=== PATIENT | male | born 1935 | race American Indian/Alaskan Native ===

== ENCOUNTER 2021-12-22 15:41 | Inpatient (IN) | payer OTHER ==
[2021-12-22 15:54] VITALS: BMI 25.6
[2021-12-22 17:46] LABS: VENOUS BASE EXCESS -12.2 mmol/L (-2-2); VENOUS O2 SATURATION 71.8 % (70-80); VENOUS PCO2 36.1 mmHg (38-52); VENOUS PH 7.222 (7.310-7.410)
[2021-12-22 17:58] LABS: BASO % 0.4 % (0-2.0); EOS % 0.3 % (0-4.5); HEMATOCRIT 31.8 % (35.4-49); HEMOGLOBIN 10.5 GM/dL (11.7-16.9); LYMPH % 6.1 % (8-40); MCH 28.7 pg (25.7-33.7); MCHC 32.9 g/dl (32.0-35.9); MEAN CELL VOLUME 87.3 fl (80-96); MEAN PLT VOLUME 8.8 fl (7.5-11.1); MONO % 6.1 % (3.8-10.2); NEUT % 87.1 % (42.8-82.8); PLATELET COUNT 339 10^3/uL (134-434); RBC 3.65 M/mm3 (4.00-5.60); RDW 14.3 % (11.9-15.9); WHITE BLOOD COUNT 16.5 K/mm3 (4.0-10.0)
[2021-12-22 18:04] LABS: LACTIC ACID 3.5 mmol/L (0.4-2.0)
[2021-12-22] MEDS ORDERED: SODIUM CHLORIDE 0.9% 500 ML INFUS.BAG IV ONE (18:09)
[2021-12-22 18:11] LABS: INR 0.96 (0.83-1.09)
[2021-12-22 18:13] LABS: ACTIVATED PTT 28.6 SECONDS (25.2-36.5)
[2021-12-22 18:35] LABS: EPI CELLS 5 /uL (0-25.1); HYALINE CASTS 4 /uL (0-3.1); PH,URINE 5.5 (5.0-8.0); URINE APPEARANCE CLOUDY; URINE BACTERIA >9,000 /uL (0-1359); URINE BILIRUBIN NEGATIVE (NEGATIVE); URINE COLOR YELLOW; URINE GLUCOSE (UA) TRACE (NEGATIVE); URINE KETONE NEGATIVE (NEGATIVE); URINE LEUK ESTERASE 2+ (NEGATIVE); URINE NITRITE NEGATIVE (NEGATIVE); URINE PROTEIN 1+ (NEGATIVE); URINE RBC 11 /uL (0-23.9); URINE UROBILINOGEN 0.2 mg/dL (0.2-1.0); URINE WBC 211 /uL (0-25.8)
[2021-12-22] MEDS ORDERED: CEFTRIAXONE 1,000 MG in DEXTROSE 5%-WATER - 50 ML IVPB ONE (18:38)
[2021-12-22] MEDS ORDERED: CEFTRIAXONE 1 GM/50 ML BAG ONE (19:29)
[2021-12-22 19:42] LABS: CHLORIDE 115 mmol/L (98-107); SODIUM 140 mmol/L (136-145)
[2021-12-22 19:44] LABS: BLOOD UREA NITROGEN 21.4 mg/dL (7-18); CALCIUM 8.9 mg/dL (8.5-10.1)
[2021-12-22 19:45] LABS: ALBUMIN 4.1 g/dl (3.4-5.0); ANION GAP 10 MMOL/L (8-16); CO2 15 mmol/L (21-32); GLUCOSE,RANDOM 191 mg/dL (74-106)
[2021-12-22 19:47] LABS: SGPT/ALT 19 U/L (13-61)
[2021-12-22 19:48] LABS: CREATININE 1.5 mg/dL (0.55-1.3); SGOT/AST 19 U/L (15-37)
[2021-12-22 19:49] LABS: BILIRUBIN,TOTAL 0.3 mg/dL (0.2-1); TOT PROT 7.8 g/dl (6.4-8.2)
[2021-12-22 19:50] LABS: ALK PHOS 107 U/L (45-117)
[2021-12-22] MEDS: INSULIN SLIDING SCALE (NOVOLOG) 1 VIAL SQ SCH (23:59)
[2021-12-23] MEDS: INSULIN SLIDING SCALE (NOVOLOG) 1 VIAL SQ SCH ×4 (06:35→21:50)
[2021-12-23 08:33] LABS: BASO % 0.4 % (0-2.0); EOS % 2.2 % (0-4.5); HEMATOCRIT 31.9 % (35.4-49); HEMOGLOBIN 10.5 GM/dL (11.7-16.9); LYMPH % 11.7 % (8-40); MCH 28.8 pg (25.7-33.7); MCHC 32.9 g/dl (32.0-35.9); MEAN CELL VOLUME 87.3 fl (80-96); MEAN PLT VOLUME 8.8 fl (7.5-11.1); MONO % 8.6 % (3.8-10.2); NEUT % 77.1 % (42.8-82.8); PLATELET COUNT 346 10^3/uL (134-434); RBC 3.65 M/mm3 (4.00-5.60); RDW 14.1 % (11.9-15.9)
[2021-12-23 08:42] LABS: CALCIUM 8.6 mg/dL (8.5-10.1)
[2021-12-23 08:43] LABS: ALBUMIN 3.7 g/dl (3.4-5.0); BLOOD UREA NITROGEN 18.2 mg/dL (7-18); IRON SERUM 44 ug/dL (50-175); MAGNESIUM 2.5 mg/dL (1.8-2.4); TOTAL IRON BINDING CAPACITY 296 ug/dL (250-450)
[2021-12-23 08:45] LABS: CREATININE 1.1 mg/dL (0.55-1.3); PHOSPHOROUS 3.5 mg/dL (2.5-4.9)
[2021-12-23 08:47] LABS: BILIRUBIN,TOTAL 0.5 mg/dL (0.2-1); TOT PROT 7.1 g/dl (6.4-8.2)
[2021-12-23] MEDS ORDERED: DEXTROSE 5%-WATER - 50 ML IVPB ONE (10:14)
[2021-12-23] MEDS ORDERED: cefTRIAXone SODIUM 1 GM VIAL ONE (10:14)
[2021-12-23] MEDS: ENOXAPARIN NA (PORCINE) 40 MG/0.4 ML DISP.SYRIN SQ SCH (10:53)
[2021-12-23] MEDS: CEFTRIAXONE 1 GM in DEXTROSE 5%-WATER - 50 ML IVPB SCH (10:53)
[2021-12-23] MEDS ORDERED: amLODIPine BESYLATE 10 MG TABLET (FP) PO SCH (14:15)
[2021-12-23] MEDS ORDERED: QUINAPRIL HCL 40 MG TABLET PO SCH (14:15)
[2021-12-23] MEDS ORDERED: PATIENT'S OWN MEDICATION (NON-FORMULARY) (Brimonidine Tartrate/Timolol [Brimonidine-Timolo OU SCH (14:15)
[2021-12-23] MEDS ORDERED: PATIENT'S OWN MEDICATION (NON-FORMULARY) (Dorzolamide/Timolol/Pf [Dorzolamide-Timolol 2%-0 OP SCH (14:15)
[2021-12-23] MEDS: BICALUTAMIDE 50 MG TABLET (FP) PO SCH (17:40)
[2021-12-23] MEDS: ACETAMINOPHEN 325 MG TABLET (FP) PO PRN (20:46)
[2021-12-23] MEDS: TIMOLOL 0.5% OPHTHALMIC SOL 5 ML BOTTLE OU SCH (21:50)
[2021-12-23] MEDS: levETIRAcetam 500 MG TABLET (FP) PO SCH (21:50)
[2021-12-23] MEDS: DORZOLAMIDE 2% HCL OPHTHALMIC SOLUTION 10 ML BOTTLE OU SCH (21:51)
[2021-12-24] MEDS: INSULIN SLIDING SCALE (NOVOLOG) 1 VIAL SQ SCH ×4 (06:03→21:30)
[2021-12-24 10:48] LABS: BASO % 0.6 % (0-2.0); EOS % 4.7 % (0-4.5); HEMATOCRIT 28.9 % (35.4-49); HEMOGLOBIN 9.7 GM/dL (11.7-16.9); LYMPH % 21.8 % (8-40); MCH 29.2 pg (25.7-33.7); MCHC 33.4 g/dl (32.0-35.9); MEAN CELL VOLUME 87.4 fl (80-96); MONO % 10.9 % (3.8-10.2); PLATELET COUNT 290 10^3/uL (134-434); RBC 3.31 M/mm3 (4.00-5.60); RDW 14.2 % (11.9-15.9); WHITE BLOOD COUNT 9.6 K/mm3 (4.0-10.0)
[2021-12-24] MEDS ORDERED: cefTRIAXone SODIUM 1 GM VIAL ONE (11:14)
[2021-12-24] MEDS ORDERED: DEXTROSE 5%-WATER - 50 ML IVPB ONE (11:14)
[2021-12-24 11:19] LABS: ALBUMIN 3.4 g/dl (3.4-5.0); CALCIUM 8.3 mg/dL (8.5-10.1)
[2021-12-24 11:20] LABS: BLOOD UREA NITROGEN 22.5 mg/dL (7-18); MAGNESIUM 2.6 mg/dL (1.8-2.4)
[2021-12-24 11:22] LABS: CREATININE 1.1 mg/dL (0.55-1.3)
[2021-12-24 11:23] LABS: BILIRUBIN,TOTAL 0.4 mg/dL (0.2-1)
[2021-12-24] MEDS: ENOXAPARIN NA (PORCINE) 40 MG/0.4 ML DISP.SYRIN SQ SCH (11:23)
[2021-12-24] MEDS: CEFTRIAXONE 1 GM in DEXTROSE 5%-WATER - 50 ML IVPB SCH (11:23)
[2021-12-24 11:24] LABS: TOT PROT 6.4 g/dl (6.4-8.2)
[2021-12-24] MEDS: DORZOLAMIDE 2% HCL OPHTHALMIC SOLUTION 10 ML BOTTLE OU SCH ×2 (11:24→21:24)
[2021-12-24] MEDS: BICALUTAMIDE 50 MG TABLET (FP) PO SCH (11:24)
[2021-12-24] MEDS: levETIRAcetam 500 MG TABLET (FP) PO SCH ×2 (11:24→21:24)
[2021-12-24] MEDS: TIMOLOL 0.5% OPHTHALMIC SOL 5 ML BOTTLE OU SCH ×2 (11:25→21:24)
[2021-12-24] MEDS ORDERED: IRON SUCROSE INJECTION 100 MG in SODIUM CHLORIDE 95 ML IVPB ONE (14:50)
[2021-12-24 19:10] VITALS: RESP 18
[2021-12-25] MEDS: INSULIN SLIDING SCALE (NOVOLOG) 1 VIAL SQ SCH ×4 (06:03→21:19)
[2021-12-25] MEDS ORDERED: cefTRIAXone SODIUM 1 GM VIAL ONE (09:44)
[2021-12-25] MEDS ORDERED: DEXTROSE 5%-WATER - 50 ML IVPB ONE (09:44)
[2021-12-25] MEDS: levETIRAcetam 500 MG TABLET (FP) PO SCH ×2 (09:52→21:19)
[2021-12-25] MEDS: ENOXAPARIN NA (PORCINE) 40 MG/0.4 ML DISP.SYRIN SQ SCH (09:52)
[2021-12-25] MEDS: ACETAMINOPHEN 325 MG TABLET (FP) PO PRN (09:52)
[2021-12-25] MEDS: BICALUTAMIDE 50 MG TABLET (FP) PO SCH (09:54)
[2021-12-25] MEDS: CEFTRIAXONE 1 GM in DEXTROSE 5%-WATER - 50 ML IVPB SCH (10:02)
[2021-12-25] MEDS: DORZOLAMIDE 2% HCL OPHTHALMIC SOLUTION 10 ML BOTTLE OU SCH ×2 (10:14→21:20)
[2021-12-25] MEDS: TIMOLOL 0.5% OPHTHALMIC SOL 5 ML BOTTLE OU SCH ×2 (10:14→21:20)
[2021-12-25 10:30] LABS: BASO % 0.7 % (0-2.0); HEMATOCRIT 30.3 % (35.4-49); HEMOGLOBIN 10.3 GM/dL (11.7-16.9); LYMPH % 16.8 % (8-40); MCH 29.4 pg (25.7-33.7); MCHC 33.9 g/dl (32.0-35.9); MEAN CELL VOLUME 86.7 fl (80-96); MONO % 10.9 % (3.8-10.2); NEUT % 67.6 % (42.8-82.8); PLATELET COUNT 295 10^3/uL (134-434); RBC 3.49 M/mm3 (4.00-5.60); RDW 14.1 % (11.9-15.9); WHITE BLOOD COUNT 11.6 K/mm3 (4.0-10.0)
[2021-12-25 10:49] LABS: CALCIUM 8.9 mg/dL (8.5-10.1)
[2021-12-25 10:50] LABS: ALBUMIN 3.5 g/dl (3.4-5.0); BLOOD UREA NITROGEN 18.8 mg/dL (7-18); MAGNESIUM 2.6 mg/dL (1.8-2.4)
[2021-12-25 10:55] LABS: BILIRUBIN,TOTAL 0.3 mg/dL (0.2-1); TOT PROT 6.9 g/dl (6.4-8.2)
[2021-12-25] MEDS: guaiFENesin/D-M SUGAR-FREE/ACLHOL-FREE 118 ML BOTTLE PO PRN (22:36)
[2021-12-25] MEDS: BRIMONIDINE TARTRATE 0.2% OPHTHALMIC 5 ML BOTTLE OU SCH (22:36)
[2021-12-26] MEDS: INSULIN SLIDING SCALE (NOVOLOG) 1 VIAL SQ SCH ×4 (06:03→21:35)
[2021-12-26] MEDS: BRIMONIDINE TARTRATE 0.2% OPHTHALMIC 5 ML BOTTLE OU SCH ×3 (06:10→21:35)
[2021-12-26] MEDS ORDERED: DEXTROSE 5%-WATER - 50 ML IVPB ONE (10:08)
[2021-12-26] MEDS ORDERED: cefTRIAXone SODIUM 1 GM VIAL ONE (10:08)
[2021-12-26 10:12] LABS: BASO % 0.6 % (0-2.0); EOS % 4.3 % (0-4.5); HEMATOCRIT 30.2 % (35.4-49); HEMOGLOBIN 10.5 GM/dL (11.7-16.9); LYMPH % 20.2 % (8-40); MCH 29.6 pg (25.7-33.7); MCHC 34.6 g/dl (32.0-35.9); MEAN CELL VOLUME 85.5 fl (80-96); MONO % 13.3 % (3.8-10.2); NEUT % 61.6 % (42.8-82.8); PLATELET COUNT 293 10^3/uL (134-434); RBC 3.53 M/mm3 (4.00-5.60); RDW 14.1 % (11.9-15.9); WHITE BLOOD COUNT 9.7 K/mm3 (4.0-10.0)
[2021-12-26] MEDS: ENOXAPARIN NA (PORCINE) 40 MG/0.4 ML DISP.SYRIN SQ SCH (10:19)
[2021-12-26] MEDS: levETIRAcetam 500 MG TABLET (FP) PO SCH ×2 (10:20→21:35)
[2021-12-26] MEDS: CEFTRIAXONE 1 GM in DEXTROSE 5%-WATER - 50 ML IVPB SCH (10:20)
[2021-12-26] MEDS: BICALUTAMIDE 50 MG TABLET (FP) PO SCH (10:23)
[2021-12-26] MEDS: TIMOLOL 0.5% OPHTHALMIC SOL 5 ML BOTTLE OU SCH ×2 (10:24→21:35)
[2021-12-26] MEDS: DORZOLAMIDE 2% HCL OPHTHALMIC SOLUTION 10 ML BOTTLE OU SCH ×2 (10:24→21:35)
[2021-12-26 10:40] LABS: CALCIUM 8.7 mg/dL (8.5-10.1)
[2021-12-26 10:41] LABS: BLOOD UREA NITROGEN 15.4 mg/dL (7-18); MAGNESIUM 2.6 mg/dL (1.8-2.4)
[2021-12-26 10:42] LABS: ALBUMIN 3.5 g/dl (3.4-5.0)
[2021-12-26 10:45] LABS: BILIRUBIN,TOTAL 0.3 mg/dL (0.2-1); TOT PROT 6.8 g/dl (6.4-8.2)
[2021-12-27] MEDS: BRIMONIDINE TARTRATE 0.2% OPHTHALMIC 5 ML BOTTLE OU SCH ×3 (05:41→21:33)
[2021-12-27] MEDS: INSULIN SLIDING SCALE (NOVOLOG) 1 VIAL SQ SCH ×4 (06:09→21:41)
[2021-12-27 09:40] LABS: BASO % 0.7 % (0-2.0); EOS % 4.8 % (0-4.5); HEMATOCRIT 33.6 % (35.4-49); HEMOGLOBIN 11.2 GM/dL (11.7-16.9); LYMPH % 23.9 % (8-40); MCH 29.1 pg (25.7-33.7); MCHC 33.5 g/dl (32.0-35.9); MEAN CELL VOLUME 86.9 fl (80-96); NEUT % 59.6 % (42.8-82.8); PLATELET COUNT 315 10^3/uL (134-434); RBC 3.87 M/mm3 (4.00-5.60); RDW 14.3 % (11.9-15.9); WHITE BLOOD COUNT 8.4 K/mm3 (4.0-10.0)
[2021-12-27 09:57] LABS: ALBUMIN 3.8 g/dl (3.4-5.0); BLOOD UREA NITROGEN 15.5 mg/dL (7-18); MAGNESIUM 2.6 mg/dL (1.8-2.4)
[2021-12-27 10:02] LABS: BILIRUBIN,TOTAL 0.3 mg/dL (0.2-1); TOT PROT 7.3 g/dl (6.4-8.2)
[2021-12-27] MEDS: ENOXAPARIN NA (PORCINE) 40 MG/0.4 ML DISP.SYRIN SQ SCH (10:26)
[2021-12-27] MEDS: BICALUTAMIDE 50 MG TABLET (FP) PO SCH (10:26)
[2021-12-27] MEDS: DORZOLAMIDE 2% HCL OPHTHALMIC SOLUTION 10 ML BOTTLE OU SCH ×2 (10:27→21:34)
[2021-12-27] MEDS: TIMOLOL 0.5% OPHTHALMIC SOL 5 ML BOTTLE OU SCH ×2 (10:27→21:34)
[2021-12-27] MEDS: AMOX TR/POT CLAV 875MG/125MG TABLETS (FP) PO SCH ×2 (10:27→17:22)
[2021-12-27] MEDS: levETIRAcetam 500 MG TABLET (FP) PO SCH ×2 (10:27→21:32)
[2021-12-28] MEDS: BRIMONIDINE TARTRATE 0.2% OPHTHALMIC 5 ML BOTTLE OU SCH ×3 (05:19→21:15)
[2021-12-28] MEDS: INSULIN SLIDING SCALE (NOVOLOG) 1 VIAL SQ SCH ×4 (06:06→21:23)
[2021-12-28] MEDS: levETIRAcetam 500 MG TABLET (FP) PO SCH ×2 (10:22→21:15)
[2021-12-28] MEDS: guaiFENesin/D-M SUGAR-FREE/ACLHOL-FREE 118 ML BOTTLE PO PRN (10:22)
[2021-12-28] MEDS: ENOXAPARIN NA (PORCINE) 40 MG/0.4 ML DISP.SYRIN SQ SCH (10:22)
[2021-12-28] MEDS: AMOX TR/POT CLAV 875MG/125MG TABLETS (FP) PO SCH ×2 (10:22→17:24)
[2021-12-28] MEDS: BICALUTAMIDE 50 MG TABLET (FP) PO SCH (10:22)
[2021-12-28] MEDS: DORZOLAMIDE 2% HCL OPHTHALMIC SOLUTION 10 ML BOTTLE OU SCH ×2 (10:23→21:14)
[2021-12-28] MEDS: TIMOLOL 0.5% OPHTHALMIC SOL 5 ML BOTTLE OU SCH ×2 (10:23→21:14)
[2021-12-29] MEDS: BRIMONIDINE TARTRATE 0.2% OPHTHALMIC 5 ML BOTTLE OU SCH ×2 (05:33→14:22)
[2021-12-29] MEDS: INSULIN SLIDING SCALE (NOVOLOG) 1 VIAL SQ SCH ×3 (06:08→16:51)
[2021-12-29] MEDS: AMOX TR/POT CLAV 875MG/125MG TABLETS (FP) PO SCH ×2 (07:49→16:51)
[2021-12-29 09:50] LABS: BASO % 0.8 % (0-2.0); EOS % 6.1 % (0-4.5); HEMATOCRIT 33.5 % (35.4-49); HEMOGLOBIN 10.9 GM/dL (11.7-16.9); LYMPH % 26.5 % (8-40); MCH 28.7 pg (25.7-33.7); MCHC 32.5 g/dl (32.0-35.9); MEAN CELL VOLUME 88.5 fl (80-96); MEAN PLT VOLUME 9.2 fl (7.5-11.1); NEUT % 58.6 % (42.8-82.8); PLATELET COUNT 301 10^3/uL (134-434); RBC 3.78 M/mm3 (4.00-5.60); RDW 14.4 % (11.9-15.9); WHITE BLOOD COUNT 9.2 K/mm3 (4.0-10.0)
[2021-12-29 10:19] LABS: CALCIUM 8.9 mg/dL (8.5-10.1)
[2021-12-29 10:20] LABS: ALBUMIN 3.6 g/dl (3.4-5.0); BLOOD UREA NITROGEN 18.2 mg/dL (7-18); MAGNESIUM 2.6 mg/dL (1.8-2.4)
[2021-12-29] MEDS: ENOXAPARIN NA (PORCINE) 40 MG/0.4 ML DISP.SYRIN SQ SCH (10:20)
[2021-12-29] MEDS: BICALUTAMIDE 50 MG TABLET (FP) PO SCH (10:21)
[2021-12-29] MEDS: levETIRAcetam 500 MG TABLET (FP) PO SCH (10:21)
[2021-12-29] MEDS: TIMOLOL 0.5% OPHTHALMIC SOL 5 ML BOTTLE OU SCH (10:21)
[2021-12-29] MEDS: DORZOLAMIDE 2% HCL OPHTHALMIC SOLUTION 10 ML BOTTLE OU SCH (10:22)
[2021-12-29 10:23] LABS: CREATININE 1.1 mg/dL (0.55-1.3)
[2021-12-29 10:25] LABS: BILIRUBIN,TOTAL 0.3 mg/dL (0.2-1)
[2021-12-29 14:13] VITALS: BP 118/52; PULSE 69; TEMP 98.9
== END 2021-12-29 18:38 | DRG 871 ==
LOC: JER 15:41 → JERBED 19:12 → J5S 12-23 01:20
PROVIDERS: ADMIT Internal Medicine; ATTEND Nurse Practitioner Acute Care
DX: A41.89 Other specified sepsis (principal); G93.41 Metabolic encephalopathy; G81.91 Hemiplegia, unspecified affecting right dominant side; E87.2 Acidosis; R47.01 Aphasia; I24.8 Other forms of acute ischemic heart disease; N39.0 Urinary tract infection, site not specified; G40.209 Localization-related (focal) (partial) symptomatic epilepsy and epileptic syndromes with complex partial seizures, not intractable, without status epilepticus; E78.5 Hyperlipidemia, unspecified; E11.9 Type 2 diabetes mellitus without complications; F03.90 Unspecified dementia, unspecified severity, without behavioral disturbance, psychotic disturbance, mood disturbance, and anxiety; C61 Malignant neoplasm of prostate; D72.829 Elevated white blood cell count, unspecified; H54.8 Legal blindness, as defined in USA; B96.20 Unspecified Escherichia coli [E. coli] as the cause of diseases classified elsewhere; I12.9 Hypertensive chronic kidney disease with stage 1 through stage 4 chronic kidney disease, or unspecified chronic kidney disease; E11.22 Type 2 diabetes mellitus with diabetic chronic kidney disease; N18.9 Chronic kidney disease, unspecified; H91.8X3 Other specified hearing loss, bilateral; D64.9 Anemia, unspecified; E83.59 Other disorders of calcium metabolism; N29 Other disorders of kidney and ureter in diseases classified elsewhere
CPT/HCPCS: 36415; 70450-TC; 71045-TC-FY; 76775-TC; 80053; 80307; 81003; 82550; 82553; 82803; 82962; 83540; 83550; 83605; 83735; 84100; 84443; 84484; 85025; 85045; 85610; 85730; 86780; 86850; 86900; 86901; 87040; 87086; 87186; 93005; 93010; 97116-GP; 97162-GP; 99285-25; C9803-CS; J1756; U0003; U0005

== ENCOUNTER 2022-07-24 16:40 | Emergency (ER) | payer OTHER ==
[2022-07-24 16:46] VITALS: BP 109/47; PULSE 88; RESP 18; TEMP 98.7; BMI 24.7
[2022-07-24] MEDS ORDERED: SODIUM CHLORIDE 0.9% 500 ML INFUS.BAG IV ONE (18:13)
[2022-07-24 18:15] LABS: BASO % 1.1 % (0-2.0); EOS % 4.1 % (0-4.5); HEMATOCRIT 28.2 % (35.4-49); HEMOGLOBIN 9.3 GM/dL (11.7-16.9); LYMPH % 19.6 % (8-40); MCH 29.3 pg (25.7-33.7); MCHC 33.1 g/dl (32.0-35.9); MEAN CELL VOLUME 88.5 fl (80-96); MEAN PLT VOLUME 8.4 fl (7.5-11.1); MONO % 13.3 % (3.8-10.2); NEUT % 61.9 % (42.8-82.8); PLATELET COUNT 366 10^3/uL (134-434); RBC 3.19 M/mm3 (4.00-5.60); RDW 13.7 % (11.9-15.9); WHITE BLOOD COUNT 8.3 K/mm3 (4.0-10.0)
[2022-07-24 18:26] LABS: INR 0.97 (0.83-1.09); PROTHROMBIN TIME (PATIENT) 11.3 SEC (9.7-13.0)
[2022-07-24 18:29] LABS: ACTIVATED PTT 32.5 SECONDS (25.2-36.5)
[2022-07-24 18:41] LABS: CALCIUM 8.9 mg/dL (8.5-10.1)
[2022-07-24 18:42] LABS: ALBUMIN 3.6 g/dl (3.4-5.0); BLOOD UREA NITROGEN 22.6 mg/dL (7-18)
[2022-07-24 18:45] LABS: CREATININE 1.2 mg/dL (0.55-1.3)
[2022-07-24 18:47] LABS: BILIRUBIN,TOTAL 0.2 mg/dL (0.2-1); TOT PROT 7.1 g/dl (6.4-8.2)
[2022-07-24 19:55] LABS: PH,URINE 7.5 (5.0-8.0); URINE APPEARANCE CLEAR; URINE BILIRUBIN NEGATIVE (NEGATIVE); URINE COLOR YELLOW; URINE GLUCOSE (UA) NEGATIVE (NEGATIVE); URINE KETONE NEGATIVE (NEGATIVE); URINE LEUK ESTERASE NEGATIVE (NEGATIVE); URINE NITRITE NEGATIVE (NEGATIVE); URINE PROTEIN TRACE (NEGATIVE); URINE UROBILINOGEN 0.2 mg/dL (0.2-1.0)
== END 2022-07-24 23:19 | disposition home or self-care (01) ==
LOC: JER 16:40
DX: K40.90 Unilateral inguinal hernia, without obstruction or gangrene, not specified as recurrent (principal)
CPT/HCPCS: 36415; 74177-TC; 80053; 81003; 83605; 85025; 85610; 85730; 86850; 86900; 86901; 87086; 99285-25; Q9967